=== PATIENT | female | born 1995 | race Caucasian/White ===

== ENCOUNTER 2020-12-19 21:59 | Inpatient (IN) | payer BC ==
[~2020-12-19] VITALS: Ht 152.4 cm; Wt 93.8 kg
[2020-12-19 22:40] LABS: HEMATOCRIT 42.4 % (36.0-47.0); HEMOGLOBIN 13.9 g/dl (12.0-15.5); MEAN CORPUSCULAR HEMOGLOBIN 29.4 pg (27.0-33.0); MEAN CORPUSCULAR HGB CONC 32.8 g/dl (32.0-36.5); MEAN CORPUSCULAR VOLUME 89.8 fl (80.0-96.0); PLATELET COUNT, AUTOMATED 356 10^3/uL (150-450); RED BLOOD COUNT 4.72 10^6/uL (4.00-5.40); WHITE BLOOD COUNT 9.1 10^3/uL (4.0-10.0)
[2020-12-19] MEDS ORDERED: OMEP-218 PO (22:44)
[2020-12-19] MEDS ORDERED: CLAR10CA3 PO (22:44)
[2020-12-19] MEDS ORDERED: LAMO100T3 PO (22:44)
[2020-12-19] MEDS ORDERED: ABIL1TAB13 PO (22:45)
[2020-12-19 23:12] LABS: AMPHETAMINES LEVEL URINE NEGATIVE (NEGATIVE); BARBITURATES URINE NEGATIVE (NEGATIVE); BENZODIAZEPINES URINE NEGATIVE (NEGATIVE); CANNABINOIDS URINE POSITIVE (NEGATIVE); COCAINE METABOLITE URINE NEGATIVE (NEGATIVE); METHADONE URINE NEGATIVE (NEGATIVE); OPIATES URINE NEGATIVE (NEGATIVE); PHENCYCLIDINE URINE NEGATIVE (NEGATIVE)
[2020-12-19 23:44] LABS: ACETAMINOPHEN LEVEL < 2.0 UG/ML (10.0-30.0); ALT/SGPT 24 U/L (12-78); BILIRUBIN,DIRECT < 0.1 MG/DL (0.0-0.2); BILIRUBIN,TOTAL 0.3 MG/DL (0.2-1.0); BLOOD UREA NITROGEN 9 MG/DL (7-18); CALCIUM LEVEL 9.1 MG/DL (8.5-10.1); CARBON DIOXIDE LEVEL 25 MEQ/L (21-32); CHLORIDE LEVEL 108 MEQ/L (98-107); CREATININE FOR GFR 0.97 MG/DL (0.55-1.30); ETHYL ALCOHOL (ETHANOL) < 0.003 % (0.000-0.010); GLOMERULAR FILTRATION RATE > 60.0 (>60); GLUCOSE, FASTING 76 MG/DL (70-100); POTASSIUM SERUM 3.9 MEQ/L (3.5-5.1); SALICYLATE LEVEL < 1.7 MG/DL (5.0-30.0); SODIUM LEVEL 141 MEQ/L (136-145); TOTAL PROTEIN 7.4 GM/DL (6.4-8.2)
[2020-12-20] MEDS ORDERED: LAMO25TA4 PO (04:01)
[2020-12-20] MEDS ORDERED: HOME MED LIST COMPLETE! XX SCH (04:05)
[2020-12-20 05:05] LABS: RSV AMPLIFICATION NEGATIVE (NEGATIVE)
[2020-12-20] MEDS ORDERED: ACETAMINOPHEN TAB 650MG DOSE (2X325MG) PO PRN (07:20)
[2020-12-20] MEDS ORDERED: MOM 30ML SUSPENSION UDC PO PRN (07:20)
[2020-12-20] MEDS ORDERED: MAALOX 30 ML SUSP *UDC PO PRN (07:20)
[2020-12-20] MEDS ORDERED: OLANZapine 5 MG TAB PO PRN (07:20)
[2020-12-20] MEDS ORDERED: traZODone 50 MG TAB PO PRN (07:20)
--- NOTE | 2020-12-20 07:34 | MHIPNPDOC ---
[facility] Progress Note Progress Note DATE OF SERVICE: 12/20/20 Patient presented by PSA, meets criteria for involuntary admission, had suicidal ideation with multiple suicidal plans, takes Abilify and Lamictal so medications, reported in increased impulsivity in context of medication changes. Vital Signs Vital Signs Date Time Temp Pulse Resp B/P (MAP) Pulse Ox O2 Delivery O2 Flow Rate FiO2 12/19/20 22:00 97.1 80 20 160/93 (115) 100 Room Air Laboratory Data 24H Labs Laboratory Tests 2 12/19/20 22:27: Nucleated Red Blood Cells % (auto) 0.0, Anion Gap 8, Glomerular Filtration Rate > 60.0, Calcium Level 9.1, Total Bilirubin 0.3, Direct Bilirubin < 0.1, Aspartate Amino Transf (AST/SGOT) 12, Alanine Aminotransferase (ALT/SGPT) 24, Alkaline Phosphatase 73, Total Protein 7.4, Albumin 4.0, Albumin/Globulin Ratio 1.2, Thyroid Stimulating Hormone (TSH) 4.990H, Salicylates Level < 1.7L, Urine Opiates Screen NEGATIVE, Urine Methadone Screen NEGATIVE, Acetaminophen Level < 2.0L, Urine Barbiturates Screen NEGATIVE, Urine Phencyclidine Screen NEGATIVE, Urine Amphetamines Screen NEGATIVE, Urine Benzodiazepines Screen NEGATIVE, Urine Cocaine Metabolite Screen NEGATIVE, Urine Cannabinoids Screen POSITIVEH, Ethyl Alcohol Level < 0.003 12/20/20 04:20: Coronavirus (COVID-19)(PCR) NEGATIVE, Influenza Type A (RT-PCR) NEGATIVE, Influenza Type B (RT-PCR) NEGATIVE, Respiratory Syncytial Virus (PCR) NEGATIVE CBC/BMP Laboratory Tests 12/19/20 22:27 Current Medications Current Medications Medications (Trade) Dose Ordered Sig/Miryam Route PRN Reason Start Time Stop Time Status Last Admin Dose Admin Acetaminophen (Tylenol Tab) 650 mg Q6HP PRN PO HEADACHE or MILD DISCOMFORT 12/20/20 07:20 UNV Al Hydrox/Mg Hydrox/Simethicone (Mylanta) 30 ml Q4HP PRN PO HEARTBURN/INDIGESTION 12/20/20 07:20 UNV Home Med (Home Med List Complete!) ASDIRECTED XX 12/20/20 04:05 12/20/20 04:08 DC Lamotrigine (LaMICtal) 25 mg DAILY PO 12/20/20 09:00 UNV Magnesium Hydroxide (Milk Of Magnesia) 30 ml DAILYPRN PRN PO CONSTIPATION 12/20/20 07:20 UNV Olanzapine (ZyPREXA) 5 mg Q6HP PRN PO AGITATION 12/20/20 07:20 UNV Trazodone HCl (Desyrel) 50 mg QHSP PRN PO INSOMNIA 12/20/20 07:20 UNV Allergies Coded Allergies: latex (Verified Allergy, Mild, HIVES, 12/19/20) ROZ GOETZ MD Dec 20, 2020 07:34
[2020-12-20] MEDS: lamoTRIgine 25MG TAB PO SCH (09:10)
[2020-12-20 10:20] VITALS: BP 135/94
[2020-12-20 15:40] VITALS: BP 134/88
[2020-12-20 19:20] VITALS: BP 132/90
[2020-12-21 06:00] VITALS: BP 138/72
[2020-12-21] MEDS: lamoTRIgine 25MG TAB PO SCH (08:13)
[2020-12-21] MEDS ORDERED: INFLUENZA QUADRIVALENT PF VACCINE 0.5ML SYRINGE IM ONE (09:00)
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
[2020-12-21] MEDS ORDERED: LORATADINE 10 MG TAB PO ONE (10:15)
[2020-12-21] MEDS: buPROPion **XL** TABLET 150MG (WELLBUTRIN XL) PO SCH (11:17)
[2020-12-21] MEDS: OMEPRAZOLE 20 MG CAP PO SCH ×2 (11:17→20:27)
--- NOTE | 2020-12-21 18:11 | HPEPDOC ---
General Date of Admission Dec 20, 2020 at 07:20 Date of Service: Dec 21, 2020 Chief Complaint The patient is a 25-year-old female admitted with a reason for visit of Unspecified Bipolar Do. Source: Patient Exam Limitations: No limitations History of Present Illness Patient is 25 years old female with past medical history of depression, anxiety, bipolar disorder presented to hospital with suicidal ideation, had plan to kill self by crashing car or drowning herself. Says the thoughts started when starting the abilify 12/15. During my interview patient denied fever, chills, nausea, diarrhea or dysuria. Patient stated that she has a chronic back problem. Home Medications Scheduled Bupropion Hcl (Bupropion Xl) 150 Mg Tab.er.24h, 150 MG PO DAILY for depression Loratadine (Claritin) 10 Mg Capsule, 10 MG PO DAILY, (Reported) Omeprazole (Omeprazole) 20 Mg Capsule.dr, 20 MG PO BID, (Reported) Oxcarbazepine (Oxcarbazepine) 150 Mg Tablet, 150 MG PO BID for mood stabilization Scheduled PRN Trazodone HCl (Trazodone HCl) 50 Mg Tablet, 50 MG PO QHSP PRN for INSOMNIA Allergies Coded Allergies: latex (Verified Allergy, Mild, HIVES, 12/19/20) Past Medical History Medical History depression, anxiety, bipolar disorder Social History * Smoker: Denies Alcohol: occationally Drugs: marijuana A-FIB/CHADSVASC A-FIB History Current/History of A-Fib/PAF?: No Current PO Anticoag Therapy: No Age/Risk Factor Scoring CHADSVASC: CHADSVASC Response (Comments) Value Age Risk Factor Age < 65 years old 0 Gender Risk Factor Female 1 Hx of CHF No 0 Hx of HTN No 0 Hx of Stroke/TIA/or VTE No 0 Hx of Diabetes No 0 Hx of Vascular Disease No 0 Total 1 Review of Systems Constitutional: Denies: Chills Eyes: Denies: Pain ENT: Denies: Head Aches Skin: Denies: Rash, Lesions Pulmonary: Denies: Dyspnea, Cough Cardiovascular: Denies: Chest Pain Gastrointestinal: Denies: Nausea Genitourinary: Denies: Dysuria Hematologic: Denies: Bruising Endocrine: Denies: Polydipsia Neurological: Denies: Weakness Psych: Reports: Anxiety, Depression Physical Examination General Exam: Positive: Alert Eye Exam: Positive: PERRLA ENT Exam: Positive: Atraumatic Neck Exam: Positive: Supple; Negative: JVD Chest Exam: Positive: Clear to auscultation Heart Exam: Positive: Rate Normal Telemetry: Positive: No significant arrhythmia Abdomen Exam: Positive: Normal bowel sounds Extremity Exam: Negative: Clubbing, Cyanosis Skin Exam: Positive: Nl turgor and temperature Neuro Exam: Positive: Strength at 5/5 X4 ext Psych Exam: Positive: Oriented x 3 Vital Signs Vital Signs Date Time Temp Pulse Resp B/P (MAP) Pulse Ox O2 Delivery O2 Flow Rate FiO2 12/21/20 06:00 98.4 82 20 138/72 (94) 99 12/20/20 10:20 Room Air Assessment/Plan Patient is 25 years old female with past medical history of depression, anxiety, bipolar disorder presented to hospital with suicidal ideation, had plan to kill self by crashing car or drowning herself. Says the thoughts started when starting the abilify 12/15. During my interview patient denied fever, chills, nausea, diarrhea or dysuria. Patient stated that she has a chronic back problem . Problems (1) Suicidal ideation Status: Acute Problem Text: Defer treatment to psych team Plan / VTE VTE Prophylaxis Ordered?: No VTE Exclusion Mechanical Proph: Low Risk for VTE RAUL PERLA DO Dec 21, 2020 18:11
[2020-12-21 19:30] VITALS: BP 140/92
[2020-12-21] MEDS: OXcarbazepine 150 MG TAB PO SCH (20:27)
[2020-12-22 06:23] VITALS: BP 139/80
[2020-12-22] MEDS: OMEPRAZOLE 20 MG CAP PO SCH ×2 (08:28→20:04)
[2020-12-22] MEDS: buPROPion **XL** TABLET 150MG (WELLBUTRIN XL) PO SCH (08:28)
[2020-12-22] MEDS: OXcarbazepine 150 MG TAB PO SCH ×2 (08:29→20:04)
--- NOTE | 2020-12-22 10:15 | MHIPNPDOC ---
[facility] Progress Note Progress Note DATE OF SERVICE: 12/22/20 HISTORY: Patient is a 25 -year-old , female, who has a reported history of bipolar (diagnosed 12/13, by primary care), history of depression, anxiety, post partem depression. Reports having depression for over 10 years, "that I've had to deal with". She self presented by car to [facility] ED, was having suicidal thoughts, had plan to kill self by crashing car or drowning herself. Says the thoughts started when starting the abilify 12/15. States thoughts were stable, but was afraid the thoughts would get worse. States she was having issues with lamictal 25 mg po daily (denies side effects), abilify 2 mg (states she thinks suicidal thoughts came after starting medication). 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 States "little things would set me off and start yelling for no reason, I would space out". "My sleep would be sporadic, "some days would sleep some days others not at all", "it's one day to the next". Denies any recent self harm or cutting, last time "when in deep depression in highschool, was cutting daily at that time", states tried to drown self in bathtub, tried to hang self, tried to O.D on medication, reports was taking abilify back then when not sleeping, longest period was 3 days reportedly, states suicidal thoughts kept her up late at that time, lost 10 friends and family in a year back then due to deaths, none suicidal attempts. States has not had recently been severely depressed, "I've been more angry and frustrated than anything". Reports using recreational cannabis until diagnosed with bipolar, denies other drugs, apart from social drinking at events rarely, never to severe intoxication or backout. "since being here have not gotten abilify and feel alot better". Interval: States she feels that she is doing a lot better, tolerating medication without side effects, states she is missing her kids and looks forward to seeing them, reports mood is an 8 out of 10 today she is smiling and is future oriented and laughing at times, also reports she is missing her . We discussed how she can use DBT skills for her personal effectiveness and distress tolerance, states she will read up on these skills and look for DBT group in the area of [place], was able to find a group in her area and recommend that she go and attend that and she seemed enthusiastic about looking into joining. She discussed an interaction where a patient was being aggressive towards her and she was able to contain her self and not yell at her, which she reports is an improvement but wants to keep practicing this when she leaves the inpatient unit. VITAL SIGNS: See below. NEW TEST RESULTS: None CURRENT MEDICATIONS: See below. MENTAL STATUS EXAMINATION: Patient is a 25-year old female, who is in no acute distress, have dyed hair, good hygiene, good eye contact, elevated BMI, appears stated Speech: Is normal rate rhythm and prosody, spontaneous Language skills are good. Thought processes including: Linear logical, goal oriented. Thought content: Denies suicidal ideation, intent or plan. Abstract reasoning, and computation: Good. Description of associations: Good. Description of abnormal or psychotic thoughts: Denies. Judgment: Good. Insight: Good. Orientation: X4. Recent and remote memory: Intact. Attention span and concentration: Good. Language: Uzbek. Fund of knowledge: Above average. Mood: " Doing really well on the medication". Affect: Euthymic, bubbly, appropriate, mood congruent, smiles and laughs DIAGNOSES: Other specified depressive disorder, recurrent brief depression Borderline personality disorder Cannabis Use disorder, mild, in early remission ASSESSMENT: Patient is tolerated medication well without side effects, feels may help with mood lability, no symptoms of paris or psychosis, mood is euthymic, no acute physical complaints. Patient currently denies suicidal ideation or plan, family resides 3 hours away and will need to come up to get her, plan for possible discharge tomorrow. Patient encouraged to utilize DBT skills and join DBT group in her area. MANAGEMENT PLAN: Continue medication, oxcarbazepine 150 mg twice daily, patient does not want an increase at this time and feels medication to be helpful, possible discharge tomorrow TIME SPENT: 15 minutes. Vital Signs Vital Signs Date Time Temp Pulse Resp B/P (MAP) Pulse Ox O2 Delivery O2 Flow Rate FiO2 12/22/20 06:23 98.3 89 16 139/80 (99) 98 Room Air Current Medications Current Medications Medications (Trade) Dose Ordered Sig/Miryam Route PRN Reason Start Time Stop Time Status Last Admin Dose Admin Acetaminophen (Tylenol Tab) 650 mg Q6HP PRN PO HEADACHE or MILD DISCOMFORT 12/20/20 07:20 Al Hydrox/Mg Hydrox/Simethicone (Mylanta) 30 ml Q4HP PRN PO HEARTBURN/INDIGESTION 12/20/20 07:20 Bupropion HCl (Wellbutrin Xl) 150 mg DAILY PO 12/21/20 09:00 12/22/20 08:28 Home Med (Home Med List Complete!) ASDIRECTED XX 12/20/20 04:05 12/20/20 04:08 DC Lamotrigine (LaMICtal) 25 mg DAILY PO 12/20/20 09:00 12/21/20 09:59 DC 12/21/20 08:13 Magnesium Hydroxide (Milk Of Magnesia) 30 ml DAILYPRN PRN PO CONSTIPATION 12/20/20 07:20 Olanzapine (ZyPREXA) 5 mg Q6HP PRN PO AGITATION 12/20/20 07:20 Omeprazole (PriLOSEC) 20 mg BID PO 12/21/20 09:00 12/22/20 08:28 Oxcarbazepine (Trileptal) 150 mg BID PO 12/21/20 21:00 12/22/20 08:29 Trazodone HCl (Desyrel) 50 mg QHSP PRN PO INSOMNIA 12/20/20 07:20 Allergies Coded Allergies: latex (Verified Allergy, Mild, HIVES, 12/19/20) ROZ GOETZ MD Dec 22, 2020 10:15
[2020-12-22 16:21] VITALS: BP 144/90
[2020-12-23 06:14] VITALS: BP 132/90
[2020-12-23] MEDS: OXcarbazepine 150 MG TAB PO SCH (08:04)
[2020-12-23] MEDS: OMEPRAZOLE 20 MG CAP PO SCH (08:04)
[2020-12-23] MEDS: buPROPion **XL** TABLET 150MG (WELLBUTRIN XL) PO SCH (08:04)
--- NOTE | 2020-12-23 12:07 | MHDSPDOC ---
[facility] Discharge Summary Discharge Summary DATE OF ADMISSION: Dec 20, 2020 at 07:20 entered in error, discard. Vital Signs/I&Os Vital Signs Date Time Temp Pulse Resp B/P (MAP) Pulse Ox O2 Delivery O2 Flow Rate FiO2 12/23/20 06:14 97.3 79 16 132/90 (104) 100 Room Air Medications Scheduled Bupropion Hcl (Bupropion Xl) 150 Mg Tab.er.24h, 150 MG PO DAILY for depression, #7 Loratadine (Claritin) 10 Mg Capsule, 10 MG PO DAILY, (Reported) Omeprazole (Omeprazole) 20 Mg Capsule.dr, 20 MG PO BID, (Reported) Oxcarbazepine (Oxcarbazepine) 150 Mg Tablet, 150 MG PO BID for mood stabilization, #7 Scheduled PRN Trazodone HCl (Trazodone HCl) 50 Mg Tablet, 50 MG PO QHSP PRN for INSOMNIA, #7 Allergies Coded Allergies: latex (Verified Allergy, Mild, HIVES, 12/19/20) ROZ GOETZ MD Dec 23, 2020 12:07
[2020-12-23] MEDS ORDERED: TRAZ-252 PO (12:10)
[2020-12-23] MEDS ORDERED: OXCA150T21 PO (12:10)
[2020-12-23] MEDS ORDERED: BUPR150T12 PO (12:10)
--- NOTE | 2020-12-23 15:55 | MHDSPDOC ---
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 Reports having depression for over 10 years, "that I've had to deal with". She self presented by car to [facility] ED, was having suicidal thoughts, had plan to kill self by crashing car or drowning herself. Says the thoughts started when starting the abilify 12/15. States thoughts were stable, but was afraid the thoughts would get worse. States she was having issues with lamictal 25 mg po daily (denies side effects), abilify 2 mg (states she thinks suicidal thoughts came after starting medication). 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 States "little things would set me off and start yelling for no reason, I would space out". "My sleep would be sporadic, "some days would sleep some days others not at all", "it's one day to the next". Denies any recent self harm or cutting, last time "when in deep depression in highschool, was cutting daily at that time", states tried to drown self in bathtub, tried to hang self, tried to O.D on medication, reports was taking abilify back then when not sleeping, longest period was 3 days reportedly, states suicidal thoughts kept her up late at that time, lost 10 friends and family in a year back then due to deaths, none suicidal attempts. States has not had recently been severely depressed, "I've been more angry and frustrated than anything". Reports using recreational cannabis until diagnosed with bipolar, denies other drugs, apart from social drinking at events rarely, never to severe intoxication or backout. "since being here have not gotten abilify and feel alot better". During stay was provided with education on cannabis use, how may affect mood, anxiety, impulse control and possible worsen borderline personality symptoms, affect ability to engage long-term therapy. Vital signs: See below Consultants involved: See medical H&P by hospitalist Treatment and progress on the unit: Patient was admitted to the [facility] on a legal status and was afforded the following treatment modalities: 1. Individual therapy 2. Group therapy 3. Medication management 4. Milieu therapy 5. Safe environment Hospital course: Patient was admitted to the [facility] on a legal status. Was medically cleared prior to coming up to the [facility]. Was seen by the on-call psychiatrist for admission over the weekend and started on Wellbutrin 150 mg XL, which she reported had good effect on mood and energy. Reported sleep significantly improved, they report that he continues to have feelings of impulsivity and so was started on oxcarbazepine 150 mg twice daily for impulsivity and mood lability. Patient reported symptoms consistent with other specified depressive disorder she does not meet full criteria for MDD, and symptoms do not persist at a time for more than 14 days, due to reports symptoms of increased impulsivity, reactive mood, history of self-harm behavior, fears of abandonment, rapid mood swings which have interfered with her situation at home with her leading to arguments, and other relationships previously, discussed DBT coping skills that she can work on which should be primarily helpful for her cluster B symptoms, she was offered a referral to a DBT group in [place], which also does couples counseling and individual counseling, but due to insurance coverage was offered other referrals by social work, but she states she plans to follow-up on attend, has a primary doctor visit within 5 days of discharge. Patient found medications beneficial and tolerated them well. Denies mood, anxiety and intrusive thoughts which improved with treatment. Patient attended groups daily during stay. Patient symptoms improved with treatment. On day of discharge patient denied depression, anxiety, insomnia, suicidal or homicidal ideations intent or plan, hallucinations, delusions. Patient was discharged home with follow-up referrals and medical visit. Patient felt safe for discharge. Was offered continued stay on voluntary admission but refused. Discharge assessment: On today's interview patient is alert and oriented, dressed appropriately. Hygiene and grooming is well-kept. Smiles on approach and is pleasant and engaged on interview. Denies depression and anxiety. Rajendra es suicidal homicidal ideation, intent or planning. Denies and is not observed with paris or psychotic symptoms of delusions, hallucinations, bizarre thinking, obsessions, paranoia, ruminations, impulsive or compulsive self-harm thoughts, illogical thoughts, flight of ideas or having poor insight or judgment. Patient has normal mentation, declines further hospitalization on a voluntary status and meets criteria for discharge today, patient encouraged to return the hospital if symptoms worsen or change and encouraged to call unit if they feel they need provider's questions to be answered or help with medications or care. Per safet y plan patient plans to spend time presenting with her until she goes to her next appointment. She is future oriented and cannot wait to see her kids, states she would never harm himself because she loves her kids and wants to be there for them. Also is goal oriented with plans on working things through with her . Mental status: Patient is a 25-year old female, who is in no acute distress, have dyed hair, good hygiene, appropriate/good eye contact, elevated BMI, appears stated Speech: Is spontaneous, normal rate and rhythm Language skills are good. Thought processes including: Linear logical, goal oriented. Thought content: Denies suicidal ideation, intent or plan. Abstract reasoning, and computation: Good. Description of associations: Good. Description of abnormal or psychotic thoughts: Denies. Judgment: Good. Insight: Good. Orientation: X4. Recent and remote memory: Intact. Attention span and concentration: Good. Language: Greenlandic. Fund of knowledge: Above average. Mood: "Doing good". Affect: Euthymic, bright, continues to be bubbly, appropriate, mood congruent, continues to smile and laugh Medications on discharge: -see medication reconciliation: CSSRS on discharge: Wish to be : No nonspecific active suicidal thoughts: No lifetime attempts: 3 remote attempts interrupted attempts: 0 aborted attempts: 0 preparatory acts or behavior: None Taking into consideration safety state, status, modifiable, non-modifiable risk factors patient is at low risk on discharge for suicide according to [place] suicide evaluation. PLAN/FOLLOWUP ARRANGEMENTS: Follow Up Care Education Label * [facility] * Established With This Provider Yes * Therapist * Date Dec 27, 2020 * Time 10:15 * Address of Clinic or Practice [address] [place] [address] * Follow Up Care Education Label * Mental Health Appt 1 * Additional information [facility] [address] [facility] [address] [facility] [address] [facility] [address] [facility] [phone] [facility] [address] [facility] [address] [facility] [address] [facility] [address] [facility] [address] [facility] [address] [facility] [facility] [phone] The amount of time spent in the coordination of care for this patient was approximately 30 minutes. ETOH/Disorder Med Rx ETOH/DRUG DISORDER RX: Offrd @ d/c & pt refused Vital Signs/I&Os Vital Signs Date Time Temp Pulse Resp B/P (MAP) Pulse Ox O2 Delivery O2 Flow Rate FiO2 12/23/20 06:14 97.3 79 16 132/90 (104) 100 Room Air Medications Scheduled Bupropion Hcl (Bupropion Xl) 150 Mg Tab.er.24h, 150 MG PO DAILY for depression, #7 Loratadine (Claritin) 10 Mg Capsule, 10 MG PO DAILY, (Reported) Omeprazole (Omeprazole) 20 Mg Capsule.dr, 20 MG PO BID, (Reported) Oxcarbazepine (Oxcarbazepine) 150 Mg Tablet, 150 MG PO BID for mood stabilization, #7 Scheduled PRN Trazodone HCl (Trazodone HCl) 50 Mg Tablet, 50 MG PO QHSP PRN for INSOMNIA, #7 Allergies Coded Allergies: latex (Verified Allergy, Mild, HIVES, 12/19/20) ROZ GOETZ MD Dec 23, 2020 15:55
== END 2020-12-23 12:43 | disposition home or self-care (01) | DRG 753 ==
LOC: M ED 21:59 → M ED INP 12-20 07:20 → M PSY 12-20 10:20
PROVIDERS: ADMIT Student in an Organized Health Care Education/Training Program; ATTEND Student in an Organized Health Care Education/Training Program
DX: F33.8 Other recurrent depressive disorders (principal); F60.3 Borderline personality disorder; F12.11 Cannabis abuse, in remission; R45.851 Suicidal ideations; K21.9 Gastro-esophageal reflux disease without esophagitis; F41.9 Anxiety disorder, unspecified; M54.50 Low back pain, unspecified; G89.29 Other chronic pain; Z79.899 Other long term (current) drug therapy; Z91.040 Latex allergy status; Z20.822 Contact with and (suspected) exposure to COVID-19